=== PATIENT | male | born 1970 | race Caucasian/White ===

== ENCOUNTER 2018-12-05 17:50 | Emergency (ER) | payer MEDICARE ==
[~2018-12-05] VITALS: Ht 180.3 cm; Wt 77.1 kg
[2018-12-05] MEDS ORDERED: OLANZAPINE20 MG PO (18:27)
== END 2018-12-05 21:18 | disposition short-term general hospital (02) ==
LOC: ED 17:50
DX: Z00.8 Encounter for other general examination (principal); F20.9 Schizophrenia, unspecified; Z87.891 Personal history of nicotine dependence; Z88.8 Allergy status to other drugs, medicaments and biological substances
CPT/HCPCS: 36415; 80053; 80176; 81001; 84443; 85025; 99283; G0480